=== PATIENT | female | born 1945 | race Two or more races ===

== ENCOUNTER 2022-06-14 13:19 | Inpatient (IN) | payer OTHER ==
[~2022-06-14] VITALS: Ht 149.9 cm; Wt 98.0 kg
[2022-06-14] MEDS ORDERED: TIROSINT88 MCG (13:26)
[2022-06-14] MEDS ORDERED: GLUMETZA500 MG (13:26)
[2022-06-14] MEDS ORDERED: TOPROL XL25 M1 (13:27)
[2022-06-14] MEDS ORDERED: ATORVASTATIN CA10 MG PO (13:27)
[2022-06-14] MEDS ORDERED: GRALISE600 MG (13:27)
--- NOTE | 2022-06-14 13:27 | NUR ---
SE RECIBE PACIENTE EN AMBULANCIA, LA MISMA SE ENCUENTRA ALERTA Y ORIENTADA X3 EN COMPANIA DE FAMILIAR, PACIENTE PROVIENE DE [facility] POR DX DE SEPSIS, AL MOMENTO DE TRIAGE SE OBSERVA PACIENTE CON DIFICULTAD RESPIRATORIA UTILIZANDO MUSCULOS ACESORIOS (ABDOMINAL), SE OBSERVA PACIENTE SATURANDO 97% CON ASISTENCIA DE CANULA NASAL A 4LT. SE OBSERVA PACIENTE CANALIZADA EN LA PARTE BAJA DE LA CLAVICULA IZQUIERDA, CON VENOPUNCION #20. SE OBSERVA PACIENTE CON FLOEY CATETER CON EGRESO URINARIO COLOR AMARILLO Y KANDICE DE [place]. SE MONITOREAN S/V, SE PRESENTA LIANA A DR CORRALES QUIEN ORDENA VERBALMENTE COLOCAR PACIENTE EN AREA DE CRITICO. SE TRASLADA A CAMA # 2 Y SE CONECTA A MONITOR CARDIACO Y OXIMETRIA DE PUL[place], SE LE HACE ENTREGA DE PACIENTE A MS Fern COTTRELL PARA CONTINUIDAD DE TX.
--- NOTE | 2022-06-14 15:00 | NUR ---
PTE EVALUADA POR DR CORRALES QUIEN ORDENA [place] MEDICO. SE EDUCA A PTE SOBRE PROCEDIMIENTOS Y REFIERE ENTENDER. SE CONECTA A MONITOR CARDIACO Y OXIMETRIA DE [place]. SE COLECTAN MUESTRAS DE ALPHONSE BAJO MEDIDAS ASEPTICAS. CANULA NASAL A 2L/MIN. SE CANALIZA Y SE COLOCA IV FLUID. PTE CON SALCEDO EN POSICION A GRAVEDAD. SE MANTIENE BAJO OBSERVACION POR CAMBIOS SIGNIFICATIVOS.
--- NOTE | 2022-06-14 16:18 | NUR ---
3:OOPM SE RECIBE PTE ALERTA Y ORIENTADA X3 EN AREA DE CRITICO EN CAMA CON BARANDAS ELEVADAS EN POSICION SEMI-RICKS. PTE CONECTADA A MONITOR CARDIACO, OXIMETRIA DE [place] Y VENTRURY MASK AL 35%. PTE CANALIZADA CON ANGIO #22 EN MANO DERECHA Y PARTE BAJA DE LA CLAVICULA IZQUERIDA CON ANGIO #20 [facility] SE OBSERVA AREA KANDICE DE EDEMA Y ENROJECIMIENTO. PTE CON .9NSS BAJANDO A 100ML/HR. PTE EN USO DE SALCEDO SE OBSERVA 300CC DE ORINA COLOR AMARILLO INTENSO. SE VANE MUESTRA DE LABORATORIO NEELAM ORDEN MEDICA BAJO MEIDDAS ASEPTICAS Y SE ENVIAN A LABORATORIO. SE MANTIENE PTE BAJOP OBSERVACION POR CAMBIOS.
[2022-06-22] MEDS ORDERED: ATORVASTATIN CA10 MG PO (17:44)
[2022-06-22] MEDS ORDERED: TOPROL XL25 M1 PO (17:45)
[2022-06-22] MEDS ORDERED: GRALISE600 MG PO (17:45)
[2022-06-22] MEDS ORDERED: HYDROCODONE-CH115 ML PO (17:47)
[2022-06-22] MEDS ORDERED: SYNTHROID100 MCG PO (17:47)
[2022-06-22] MEDS ORDERED: PROAIR RESPICL90 MCG IH (17:48)
== END 2022-06-22 21:08 | disposition home or self-care (01) | DRG 872 ==
LOC: ER 13:19 → SEC-K 17:49 → MEDJ 06-15 14:22
PROVIDERS: ADMIT Internal Medicine Hematology & Oncology; ATTEND Internal Medicine Hematology & Oncology
PROC: 5A0945A Assistance with Respiratory Ventilation, 24-96 Consecutive Hours, High Flow/Velocity Cannula (ICD-10-PCS; principal; 2022-06-14)
PROC: 4A12X4Z Monitoring of Cardiac Electrical Activity, External Approach (ICD-10-PCS; 2022-06-15)
DX: A41.51 Sepsis due to Escherichia coli [E. coli] (principal); N39.0 Urinary tract infection, site not specified; N17.9 Acute kidney failure, unspecified; J90 Pleural effusion, not elsewhere classified; J20.9 Acute bronchitis, unspecified; R09.02 Hypoxemia; B96.20 Unspecified Escherichia coli [E. coli] as the cause of diseases classified elsewhere; C54.1 Malignant neoplasm of endometrium; I12.9 Hypertensive chronic kidney disease with stage 1 through stage 4 chronic kidney disease, or unspecified chronic kidney disease; E11.22 Type 2 diabetes mellitus with diabetic chronic kidney disease; N18.9 Chronic kidney disease, unspecified; E03.9 Hypothyroidism, unspecified; E66.09 Other obesity due to excess calories